=== PATIENT | male | born 1975 | race Caucasian/White ===

== ENCOUNTER 2021-12-09 15:39 | Outpatient (REF) | payer SELFPAY ==
[2021-12-11 15:32] LABS: COVID-19 RT-PCR UVMMC Result Positive (Negative)
== END 2021-12-09 15:40 | disposition home or self-care (01) ==
LOC: LBN 15:39
PROVIDERS: Visit Provider Nurse Practitioner Family
DX: Z20.822 Contact with and (suspected) exposure to COVID-19 (principal); J02.9 Acute pharyngitis, unspecified
CPT/HCPCS: U0003; 87070